=== PATIENT | male | born 2000 | race Caucasian/White ===

== ENCOUNTER 2024-01-13 11:44 | Emergency (ER) | payer OTHER, BC, SELFPAY ==
--- NOTE | ~2024-01-13 | CT_ITS ---
EXAM: CT HEAD WITHOUT CONTRAST CT CERVICAL SPINE INDICATION: Reason for Exam neck pain TECHNIQUE: A noncontrast CT scan was performed from the skull base to the vertex. A noncontrast CT scan of the cervical spine was performed from the base of the skull through T1 at 2.5 mm and 0.625 mm collimation. Coronal and sagittal reformats were obtained at the acquisition workstation. This CT examination was performed using dose optimization techniques as appropriate, variously including the following: * Automated exposure control * Adjustment of mA and/or kV according to patient size (this includes techniques or standardized protocols for targeted exams where dose is matched to indication/reason for exam; i.e. extremities or head) * Use of iterative reconstruction technique Dose length product is 1191 mGy-cm. COMPARISON: None FINDINGS: Head: There is no evidence of acute intracranial hemorrhage or edematous territorial infarction. No abnormal mass effect or midline shift is seen. Dye to white matter differentiation is well preserved. No extra-axial fluid collections are identified. The ventricles are normal in size. No abnormal attenuation in the brain parenchyma. No acute calvarial fracture.. Paranasal sinuses and mastoid air cells are well-aerated. Cervical Spine: The atlantooccipital and atlantoaxial articulations remain well aligned. Straightening of the normal cervical lordosis. Otherwise, there is anatomic alignment of the vertebral bodies and posterior elements. Vertebral body heights are maintained. No evidence of acute fracture.. The disc spaces are preserved. Bony central canal is maintained.. No prevertebral soft tissue swelling. No suspicious thyroid findings. The visualized lung apices are clear. CT/CT cervical spine wo IV con IMPRESSION: No CT evidence of acute intracranial hemorrhage or edematous territorial infarction. No CT evidence of acute cervical spine fracture.
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
[2024-01-13 11:56] VITALS: BP 118/82; PULSE 81; RESP 18; TEMP 36.9; O2SAT 97; BMI 40.6
[2024-01-13 12:02] VITALS: BP 150/95; PULSE 88; O2SAT 99
--- NOTE | 2024-01-13 12:14 | PC.NURSE ---
IV placed, labs drawn and sent.
[2024-01-13 12:16] LABS: MANUAL DIFF FLAG NO
[2024-01-13 12:17] LABS: Basophils Percent Auto 0.6 % (0-2); Eosinophils Absolute Auto 0.4 X10*3/uL (0.0-0.4); Eosinophils Percent Auto 4.2 % (0-4); Hematocrit 41.9 % (42.0-52.0); Hemoglobin 14.6 g/dl (14.0-18.0); Imm Gran Abs Auto 0.02 X10*3/uL (0.00-0.03); Imm Gran Pct Auto 0.2 % (0.0-0.4); Lymphocytes Absolute Auto 2.5 X10*3/uL (1.2-4.9); Lymphocytes Percent Auto 29.4 % (20-40); Mean Corpuscular HGB Conc 34.8 g/dl (31.0-36.0); Mean Corpuscular Hemoglobin 29.5 pg (27.0-33.0); Mean Corpuscular Volume 84.6 fL (80.0-98.0); Mean Platelet Volume 10.4 fL (9.4-12.4); Monocytes Absolute Auto 0.6 X10*3/uL (0.1-1.2); Monocytes Percent Auto 7.2 % (2-11); Neutrophils Absolute Auto 4.9 x10*3/uL (2.0-8.3); Neutrophils Percent Auto 58.4 % (45-73); Platelet Count 288 X10*3/uL (160-400); Red Blood Count 4.95 X10*6/uL (4.60-5.80); Red Cell Distribution Width 12.1 % (11.0-16.0); White Blood Count 8.3 X10*3/uL (4.8-10.8)
[2024-01-13 12:18] LABS: Basophils Absolute Auto 0.1 X10*3/uL (0.0-0.2)
[2024-01-13 12:23] LABS: Prothrombin Time 11.7 SEC (11.1-13.3)
[2024-01-13 12:33] LABS: Alanine Aminotransferase 42 U/L (0-40); Albumin Level 4.4 g/dL (3.5-5.0); Alkaline Phosphatase 73 U/L (39-117); Anion Gap 10 (12-20); Aspartate Amino Transferase 25 U/L (5-37); Bilirubin Total 0.4 mg/dL (0.0-1.0); Blood Urea Nitrogen 13 mg/dL (9-16); Calcium 9.7 mg/dL (8.4-10.2); Carbon Dioxide 25 mmol/L (22-29); Chloride 108 mmol/L (96-108); Creatinine Clr Calc Pharmacy 128.8; Estimated Glomerular Filt Rate > 60; Glucose Random 90 mg/dL (60-115); Sodium 139 mmol/L (135-145); Total Protein 7.4 g/dL (6.5-8.0)
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
[2024-01-13 14:00] VITALS: BP 119/71; PULSE 69; RESP 15; TEMP 37.1; O2SAT 97
[2024-01-13] MEDS: iohexoL 350 MG/ML 100 ML INFUS..BTL 85 ML IV (14:00)
[2024-01-13 16:21] VITALS: BP 119/71; PULSE 69; RESP 15; TEMP 37.1; O2SAT 97
== END 2024-01-13 16:22 | disposition home or self-care (01) ==
PROVIDERS: Physician Assistant; Emergency Provider Emergency Medicine
DX: S06.0XAA Concussion with loss of consciousness status unknown, initial encounter (principal); S30.1XXA Contusion of abdominal wall, initial encounter; M54.50 Low back pain, unspecified; R51.9 Headache, unspecified; M54.2 Cervicalgia; R07.89 Other chest pain; R10.30 Lower abdominal pain, unspecified; V43.52XA Car driver injured in collision with other type car in traffic accident, initial encounter; Y93.89 Activity, other specified; Y92.488 Other paved roadways as the place of occurrence of the external cause; Y99.8 Other external cause status; Z79.899 Other long term (current) drug therapy
CPT/HCPCS: 36415; 51798; 70450; 71260; 72125; 74177; 80053; 83735; 85025; 85610; 99284; Q9967